=== PATIENT | male | born 1990 | race Caucasian/White ===

== ENCOUNTER 2019-12-08 11:25 | Emergency (ER) | payer OTHER, SELFPAY ==
[2019-12-08 11:43] VITALS: BP 143/82; PULSE 88; RESP 16; TEMP 37.3; O2SAT 98
--- NOTE | 2019-12-08 11:49 | ED.WOUNDLAC ---
HPI - Wound/Laceration General Chief Complaint: Wound/Laceration Stated Complaint: cut left 3rd finger Time Seen by Provider: 12/08/19 11:45 Source: patient and RN notes reviewed Mode of arrival: ambulatory Limitations: no limitations History of Present Illness HPI narrative: Patient presents today complaining of laceration to his left third finger. It was sustained at work on a piece of jagged metal approximately 45 minutes prior to exam. Denies numbness or tingling in the finger. Currently rates his pain 2/10. He is not up-to-date on his tetanus vaccine. Location: other (Left third finger) Related Data Home Medications Medication Instructions Recorded Confirmed No Home Medications 12/08/19 12/08/19 Allergies Allergy/AdvReac Type Severity Reaction Status Date / Time No Known Allergies Allergy Unverified 12/08/19 11:56 Review of Systems Review of Systems: Narrative: CONSTITUTIONAL: Denies body aches, fever, chills, or sweats. EYES: Denies visual changes, redness, or discharge. ENT: Denies rhinorrhea, congestion, sore throat, or otalgia. CARDIOVASCULAR: Denies chest pain, palpitations, or edema. RESPIRATORY: Denies cough or dyspnea. GASTROINTESTINAL: Denies abdominal pain, nausea, vomiting, or diarrhea. GENITOURINARY: Denies dysuria or hematuria. SKIN: Denies rash, itching. + Left third finger laceration MUSCULOSKELETAL: Denies back pain, joint pain, or myalgia. NEUROLOGIC: Denies headache, numbness, tingling, or weakness. PSYCH: Denies depression or anxiety. [facility] Past Medical History Medical History (Updated 12/08/19 @ 12:08 by Stephanie Rose, [facility], ) Acute rhinosinusitis Social History Social History Smoking status: Never smoker Alcohol intake: current Gender identity (if verbalized by the patient): Male Exam Narrative: Exam Narrative: GENERAL: Well-appearing, well-nourished, and in no acute distress. HEAD: Normocephalic, atraumatic. EYES: EOMI. No redness or drainage. Conjunctivae normal. ENT: Mucous membranes pink and moist. NECK: Normal AROM. CHEST: No respiratory distress. EXTREMITIES: Normal range of motion. No edema. SKIN: Warm, dry, no rash. Normal skin turgor. 1.5 cm partial-thickness flap laceration to the left third PIP, dorsal aspect. Distal sensation intact. Capillary refill normal. Full AROM of the finger against resistance. Minimal active bleeding. NEURO: No focal deficits. Alert and oriented x3. Gait steady. PSYCH: Normal affect. No signs of depression or anxiety. Course Vital Signs Vital signs: Vital Signs Temperature 99.1 F 12/08/19 11:43 Pulse Rate 88 12/08/19 11:43 Respiratory Rate 16 12/08/19 11:43 Blood Pressure 143/82 H 12/08/19 11:43 Pulse Oximetry 98 12/08/19 11:43 Temperature 99.1 F 12/08/19 11:43 Pulse Rate 88 12/08/19 11:43 Respiratory Rate 16 12/08/19 11:43 Blood Pressure 143/82 H 12/08/19 11:43 Pulse Oximetry 98 12/08/19 11:43 Reviewed. Pt has been instructed to follow up with his PCP regarding his elevated blood pressure today. Procedures Laceration Laceration 1: Date: 12/08/19 Time: 12:04 Site: lower extremity Size (cm): 1.5 Description: flap Depth: simple, single layer Local Anesthetic: lidocaine 1% Amount of anesthesia used (mL): 1 Pre-repair: wound explored and irrigated ====== Skin Level ====== Skin layer closed with: nylon Size (cm): 5-0 Number of sutures: 2 Technique: simple, interrupted ====== Subcutaneous Layer ====== ====== Muscle Layer ====== ====== Tendon Layer ====== Dressing: Splint and dressing applied by RN. MDM - Wound/Laceration Differential Diagnosis Differential diagnosis: Likely laceration Critical Care Time Critical Care Time Critical Care Time: No Discharge Plan Discharge Clinical Impression: Finger laceration Qualifiers: Encounter type: in
[2019-12-08] MEDS: TETANUS,DIPHTHERIA,AC PERTUSSIS ADULT 0.5 ML (ADACEL) IM (11:52)
== END 2019-12-08 12:09 | disposition home or self-care (01) ==
PROVIDERS: Emergency Provider Nurse Practitioner; PCP Family Medicine
DX: S61.213A Laceration without foreign body of left middle finger without damage to nail, initial encounter (principal); Z23 Encounter for immunization; W26.9XXA Contact with unspecified sharp object(s), initial encounter
CPT/HCPCS: 12001; 90471; 90715; 99212; G0463

== ENCOUNTER 2021-08-24 | Emergency (ER) | payer OTHER, SELFPAY ==
[2021-08-24 01:09] VITALS: BP 166/104; PULSE 87; RESP 16; TEMP 36.9; O2SAT 97
--- NOTE | 2021-08-24 02:05 | ED.EYEPROB ---
HPI - Eye Problem General Chief complaint: Eye Problems Stated complaint: eye pain, tearing Time Seen by Provider: 08/24/21 01:55 History of Present Illness HPI Narrative: 30-year-old presents the emergency room with complaints of a grainy feeling in his left eye upon awakening this evening around 11:00. Patient states he has a history of corneal abrasions. Related Data Allergies Allergy/AdvReac Type Severity Reaction Status Date / Time No Known Allergies Allergy Unverified 12/08/19 11:56 Review of Systems Review of Systems: CONSTITUTIONAL: Denies fever, chills, or sweats. EYES: Denies visual changes, redness, or discharge. ENT: Denies rhinorrhea, congestion, sore throat, or otalgia. CARDIOVASCULAR: Denies chest pain, palpitations, or edema. RESPIRATORY: Denies cough or dyspnea. GASTROINTESTINAL: Denies abdominal pain, nausea, vomiting, or diarrhea. GENITOURINARY: Denies dysuria or hematuria. SKIN: Denies rash or itching. MUSCULOSKELETAL: Denies back pain, joint pain, or myalgia. NEUROLOGIC: Denies headache, numbness, dizziness, or weakness. PSYCHIATRIC: Denies anxiety or depression. [facility] Past Medical History Medical History Acute rhinosinusitis Social History Social History Smoking status: Never smoker Alcohol intake: current Gender identity (if verbalized by the patient): Male Exam Narrative: GENERAL: Well-appearing, well-nourished, and in no acute distress. HEAD: Normocephalic, atraumatic. EYES: PERRLA and EOMI. crescent shaped corneal abrasion to the 6 o'clock position of the left eye ENT: Nares clear, no rhinorrhea or epistaxis. Mucous membranes moist. Oropharynx without tonsillar hypertrophy exudate or other lesions. Bilateral TMs pearly rivera nonbulging NECK: Supple. No adenopathy or masses. No carotid bruits or JVD CHEST: Clear to auscultation. No respiratory distress. No wheezes rales or rhonchi HEART: Regular rate and rhythm. No murmur heard. Normal peripheral pulses. ABDOMEN: Soft, nontender, nondistended, normal active bowel sounds. EXTREMITIES: Normal range of motion. No edema. SKIN: Warm, dry, no rash. NEURO: No focal deficits. Alert and oriented x3. PSYCH: Normal mood and affect. Course Course Emergency Course: Fluorescein stain to left eye demonstrated a small crescent-shaped corneal abrasion to the 6 o'clock position. Vital Signs Vital signs: Vital Signs Temperature 36.9 C 08/24/21 01:09 Pulse Rate 87 08/24/21 01:09 Respiratory Rate 16 08/24/21 01:09 Blood Pressure 166/104 H 08/24/21 01:09 Pulse Oximetry 97 08/24/21 01:09 Temperature 36.9 C 08/24/21 01:09 Pulse Rate 87 08/24/21 01:09 Respiratory Rate 16 08/24/21 01:09 Blood Pressure 166/104 H 08/24/21 01:09 Pulse Oximetry 97 08/24/21 01:09 MDM - Eye Problem Differential Diagnosis Differential diagnosis: Likely corneal abrasion Discharge Plan Discharge Clinical Impression: Corneal abrasion Qualifiers: Encounter type: initial encounter Laterality: left Qualified Code(s): S05.02XA - Injury of conjunctiva and corneal abrasion without foreign body, left eye, initial encounter Patient Disposition: Home, Self-Care Condition: Stable Instructions: Antibiotic Form Additional Instructions: Take eyedrops as directed. Follow-up with optometry or ophthalmology in 5 to 6 days as needed if symptoms do not improve or if vision worsens. Prescriptions: New polymyxin B sulf-trimethoprim 10,000 unit- 1 mg/mL drops 1 drp EACH EYE Q3H 7 Days RF: 0 No Action triamcinolone acetonide 0.1 % cream 1 applic TOPICAL DAILY Qty: 15 RF: 0 Follow-up/Referrals: Gene Dutton MD [Primary Care Provider] - Time of Disposition: 02:11
[2021-08-24 02:47] VITALS: BP 155/102; PULSE 81; RESP 18; O2SAT 99
== END 2021-08-24 02:49 | disposition home or self-care (01) ==
LOC: ANHED 02:21
PROVIDERS: Emergency Provider Nurse Practitioner Family; PCP Family Medicine
DX: S05.02XA Injury of conjunctiva and corneal abrasion without foreign body, left eye, initial encounter (principal); X58.XXXA Exposure to other specified factors, initial encounter
CPT/HCPCS: 99283; A9270

== ENCOUNTER 2022-10-08 08:29 | Emergency (ER) | payer OTHER, SELFPAY ==
[2022-10-08] VITALS (8 sets, daily range): BP systolic 111–171; BP diastolic 85–106; PULSE 80–96; RESP 15–20; TEMP 36.4; O2SAT 94–99
--- NOTE | 2022-10-08 08:50 | ECG_ITS ---
Measurements Intervals [place] Rate: 93 P: 57 WI: 146 QRS: 53 QRSD: 85 T: 30 QT: 351 QTc: 437 Interpretive Statements SINUS RHYTHM NO PREVIOUS ECG AVAILABLE FOR COMPARISON Electronically Signed On 10-08-2022 12:25:32 CDT by Machelle Salas M.D.
--- NOTE | 2022-10-08 09:10 | ED.ARRPALP ---
HPI - Arrhythmia/Palpitations General Chief Complaint: Arrhythmia/Palpitations Stated Complaint: heart palpitations Time Seen by Provider: 10/08/22 08:51 Source: patient Mode of arrival: ambulatory Limitations: no limitations History of Present Illness HPI narrative: This is a 31-year-old male with no pertinent PMH who presents to the ED for chief complaint of palpitations x1 month intermittently. States more frequent in the last 3 days. Called his PCP who said come to the ER. States they last only a couple seconds and then go away. States it feels like it skips a beat on occasion. States he cut caffeine out about a couple months ago. Patient denies any syncope, chest pain, shortness of breath. Related Data Home Medications Medication Instructions Recorded Confirmed No Home Medications 03/13/22 03/13/22 Allergies Allergy/AdvReac Type Severity Reaction Status Date / Time No Known Allergies Allergy Unverified 10/08/22 08:45 Review of Systems Review of Systems: CONSTITUTIONAL: Denies fever, chills, or sweats. EYES: Denies visual changes, redness, or discharge. ENT: Denies rhinorrhea, congestion, sore throat, or otalgia. CARDIOVASCULAR: Endorses palpitations. Denies chest pain, or edema. RESPIRATORY: Denies cough or dyspnea. GASTROINTESTINAL: Denies abdominal pain, nausea, vomiting, or diarrhea. GENITOURINARY: Denies dysuria or hematuria. SKIN: Denies rash or itching. MUSCULOSKELETAL: Denies back pain, joint pain, or myalgia. NEUROLOGIC: Denies headache, numbness, dizziness, or weakness. PSYCHIATRIC: Denies anxiety or depression. [facility] Past Medical History Medical History Acute rhinosinusitis Social History Social History (Updated 03/13/22 @ 13:25 by Mary Wild) Smoking status: Never smoker Alcohol intake: current Substance use: never Living arrangements: with family Occupation/Education: occupation Gender identity (if verbalized by the patient): Male Sexual Orientation (if Verbalized by the Patient): Straight or Heterosexual Spiritual care concerns: No Exam Narrative: GENERAL: Well-appearing, well-nourished, and in no acute distress. HEAD: Normocephalic, atraumatic. EYES: PERRLA and EOMI. ENT: Nares clear, no rhinorrhea or epistaxis. Mucous membranes moist. Oropharynx without tonsillar hypertrophy exudate or other lesions. NECK: Supple. No adenopathy or masses. CHEST: No respiratory distress. Clear to auscultation. No wheezes rales or rhonchi HEART: Regular rate and rhythm. No murmur heard. Normal peripheral pulses. ABDOMEN: Soft, nontender, nondistended, normal active bowel sounds. EXTREMITIES: Normal range of motion. No edema. SKIN: Warm, dry, no rash. NEURO: Alert and oriented x3. No focal deficits. PSYCH: Normal mood and affect. Course Vital Signs Vital signs: Vital Signs Temperature 97.6 F 10/08/22 08:41 Pulse Rate 94 10/08/22 08:41 Respiratory Rate 20 10/08/22 08:41 Blood Pressure 171/106 H 10/08/22 08:41 Pulse Oximetry 98 10/08/22 08:41 Oxygen Delivery Room Air 10/08/22 08:41 Temperature 97.6 F 10/08/22 08:41 Pulse Rate 88 10/08/22 10:08 Respiratory Rate 18 10/08/22 10:08 Blood Pressure 129/85 10/08/22 10:08 Pulse Oximetry 96 10/08/22 10:08 Oxygen Delivery Room Air 10/08/22 08:41 MDM - Arrhythmia/Palpitations MDM Narrative Medical decision making narrative: This is a 31-year-old male presents to the ED with chief complaint of palpitations x1 month. Initial vitals are stable. Slightly hypertensive but relates this to whitecoat anxiety. EKG is normal sinus rhythm with regular rate. Initial blood work including CBC, BMP, TSH all show no acute abnormalities. Due to his described sensations of fluttering and only feeling like it only lasts a couple of seconds, suspect something more like PVCs or anxiety. Encouraged him to follow-up with PCP to set up the H
[2022-10-08 09:16] LABS: Basophils Percent Auto 0.5 % (0.2-1.2); Eosinophils Absolute Auto 0.1 K/mm3 (0-0.3); Eosinophils Percent Auto 1.5 % (0-4.4); Hematocrit 43.7 % (42.0-52.0); Hemoglobin 15.3 g/dL (14.0-18.0); Immature Granulocyte Absolute 0.04 K/mm3 (0.00-0.031); Immature Granulocyte Percent A 0.5 % (0-0.5); Lymphocytes Absolute Auto 1.79 K/mm3 (0.9-3.2); Lymphocytes Percent Auto 22.5 % (18.3-44.2); Mean Corpuscular Hemoglobin 28.6 pg (26-34); Mean Corpuscular Volume 81.7 fl (80-100); Mean Platelet Volume 9.3 fl (7.4-10.4); Monocytes Absolute Auto 0.7 K/mm3 (0.1-0.6); Monocytes Percent Auto 8.2 % (2.6-8.5); Neutrophils Absolute Auto 5.3 K/mm3 (1.3-6.7); Neutrophils Percent Auto 66.8 % (45.5-73.1); Platelet Count Result 285 k/mm3 (150-375); Red Blood Count 5.35 M/mm3 (4.6-6.20); Red Cell Distribution Width 12.1 % (11.5-14.5)
[2022-10-08 09:25] LABS: Anion Gap 8 mmol/L (8-16); Blood Urea Nitrogen 19 mg/dL (9-20); Calcium 9.5 mg/dL (8.4-10.2); Carbon Dioxide 28 mmol/L (22-30); Chloride 103 mmol/L (98-107); Estimated CRCL calculation 145 ml/min; Estimated Glomerular Filt Rate > 60; Glucose 112 mg/dL (65-110); Potassium 3.6 mmol/L (3.4-5.0); Sodium 139 mmol/L (137-145)
== END 2022-10-08 10:38 | disposition home or self-care (01) ==
PROVIDERS: Emergency Provider Physician Assistant; PCP Family Medicine
DX: R00.2 Palpitations (principal)
CPT/HCPCS: 36415; 80048; 84443; 85025; 93005; 99283

== ENCOUNTER 2023-06-10 08:03 | Emergency (ER) | payer OTHER, SELFPAY ==
--- NOTE | ~2023-06-10 | XR_ITS ---
XR ankle LT min 3V, XR foot LT min 3V 06/10/2023 08:33 Indication: Status post fall. Left ankle and foot pain. Procedure: 4 views left ankle and 4 views left foot Comparison: No prior studies for comparison. Findings: There is a fifth metatarsal neck fracture which is nondisplaced and extra-articular. There is a degenerative calcaneal enthesophyte at the plantar surface. Ankle mortise intact. Lisfranc joint intact. Impression: 1: Nondisplaced extra-articular fracture distal aspect of the fifth metatarsal at the neck. Reviewed, dictated and finalized at location B. [employer]ACH[employer]PER[employer] Impression: 1: Nondisplaced extra-articular fracture distal aspect of the fifth metatarsal at the neck. Impression: 1: Nondisplaced extra-articular fracture distal aspect of the fifth metatarsal at the neck.
[2023-06-10 08:16] VITALS: BP 141/88; PULSE 80; RESP 18; TEMP 36.3; O2SAT 99
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
--- NOTE | 2023-06-10 09:02 | PC.NURSE ---
+PMS POST POST OP SHOE APPLICATION. PT AMBULATORY ON CRUTCHES WITHOUT DIFFICULTY. RAD DISC PROVIDED
== END 2023-06-10 09:00 | disposition home or self-care (01) ==
PROVIDERS: Emergency Provider Nurse Practitioner; PCP Family Medicine
DX: S92.355A Nondisplaced fracture of fifth metatarsal bone, left foot, initial encounter for closed fracture (principal); V86.06XA Driver of dirt bike or motor/cross bike injured in traffic accident, initial encounter
CPT/HCPCS: 73610; 73630; 99214; G0463

== ENCOUNTER 2023-09-06 16:00 | Emergency (ER) | payer OTHER, SELFPAY ==
[2023-09-06 16:12] VITALS: BP 153/96; PULSE 92; RESP 18; TEMP 36.6; O2SAT 100
--- NOTE | 2023-09-06 16:51 | ED.URI ---
HPI - URI/Sore Throat General Chief Complaint: Upper Respiratory Infection Stated Complaint: sore throat Time Seen by Provider: 09/06/23 16:51 Source: patient Mode of arrival: ambulatory Limitations: no limitations History of Present Illness HPI Narrative: 32-year-old male presents with complaint of intermittent sore throat, postnasal drainage for 2 weeks. Afebrile. Not taking any [id number] medications to treat his symptoms. Patient reports that every spring he takes Zyrtec for allergies. All systems reviewed and negative except as noted above. Related Data Allergies Allergy/AdvReac Type Severity Reaction Status Date / Time No Known Allergies Allergy Verified 09/06/23 16:19 Review of Systems Review of Systems: CONSTITUTIONAL: Denies fever, chills, or sweats. EYES: Denies visual changes, redness, or discharge. ENT: Denies rhinorrhea, congestion Reports sore throat, postnasal drainage. Denies otalgia. CARDIOVASCULAR: Denies chest pain, palpitations, or edema. RESPIRATORY: Denies cough or dyspnea. GASTROINTESTINAL: Denies abdominal pain, nausea, vomiting, or diarrhea. GENITOURINARY: Denies dysuria or hematuria. SKIN: Denies rash or itching. MUSCULOSKELETAL: Denies back pain, joint pain, or myalgia. NEUROLOGIC: Denies headache, numbness, or weakness. PSYCHIATRIC: Denies anxiety or depression. All other systems reviewed are negative, except as documented in HPI. [facility] Past Medical History Medical History (Updated 09/06/23 @ 16:59 by Rachel Vieira NP) Acute rhinosinusitis Nondisplaced fracture of fifth left metatarsal bone [place] neck. 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 There is no relevant family history pertinent to the presenting complaint. Exam Narrative: GENERAL: This is a well-nourished, well-developed patient, in no apparent distress. HEAD: normocephalic, atraumatic. EYES: PERRL. Sclera clear/white. Vision is grossly intact. EARS: External ears normal, auditory canals clear and without drainage, TMs normal without perforation. Hearing grossly intact. NOSE: External nose normal with no obvious nasal discharge, nares without redness, no rhinorrhea. THROAT: Mucous membranes moist, erythema with postnasal drainage. NECK: Neck supple, non-tender without lymphadenopathy, masses or thyromegaly. CARDIOVASCULAR: Regular rate and rhythm without murmurs, gallops, or rubs. RESPIRATORY: Clear to auscultation. Breath sounds equal bilaterally. No wheezes, rales, or rhonchi. SKIN: warm, Dry, intact with no suspicious lesions or rash, good texture and turgor. NEURO: awake, alert, and oriented to person, place and time. There were no obvious focal neurologic abnormalities. EXTREMITIES: No joint tenderness, effusion, or edema noted. Course Course Level of Care: Express Care Visit Vital Signs Vital signs: Vital Signs Temperature 36.6 C 09/06/23 16:12 Pulse Rate 92 09/06/23 16:12 Respiratory Rate 18 09/06/23 16:12 Blood Pressure 153/96 H 09/06/23 16:12 Pulse Oximetry 100 09/06/23 16:12 Oxygen Deli
== END 2023-09-06 17:03 | disposition home or self-care (01) ==
PROVIDERS: Emergency Provider Nurse Practitioner Family; PCP Family Medicine
DX: J01.90 Acute sinusitis, unspecified (principal)
CPT/HCPCS: 87081; 87880; 99213; G0463

== ENCOUNTER 2023-11-10 13:05 | Emergency (ER) | payer OTHER, SELFPAY ==
[2023-11-10 13:27] VITALS: BP 131/84; PULSE 79; RESP 16; TEMP 36.4; O2SAT 99
--- NOTE | 2023-11-10 13:31 | ED.URI ---
HPI - URI/Sore Throat General Chief Complaint: Upper Respiratory Infection Stated Complaint: Sore Throat Time Seen by Provider: 11/10/23 13:31 Source: patient Mode of arrival: ambulatory Limitations: no limitations History of Present Illness HPI Narrative: 33-year-old male presents with complaint of sore throat, nasal congestion, fatigue, body aches, headaches, intermittent cough for the past 3 days. Denies nausea vomiting diarrhea. Patient's daughter sick with strep throat. All systems reviewed and negative except as noted above. Related Data Allergies Allergy/AdvReac Type Severity Reaction Status Date / Time No Known Allergies Allergy Verified 11/10/23 13:07 Review of Systems Review of Systems: CONSTITUTIONAL: Denies fever, chills, or sweats. Reports fatigue. EYES: Denies visual changes, redness, or discharge. ENT: Reports rhinorrhea, congestion, sore throat. Denies otalgia. CARDIOVASCULAR: Denies chest pain, palpitations, or edema. RESPIRATORY: reports cough. Denies dyspnea. GASTROINTESTINAL: Denies abdominal pain, nausea, vomiting, or diarrhea. GENITOURINARY: Denies dysuria or hematuria. SKIN: Denies rash or itching. MUSCULOSKELETAL: Denies back pain, joint pain, or myalgia. NEUROLOGIC: Denies headache, numbness, or weakness. PSYCHIATRIC: Denies anxiety or depression. All other systems reviewed are negative, except as documented in HPI. [facility] Past Medical History Medical History Acute rhinosinusitis Nondisplaced fracture of fifth left metatarsal bone [place] neck. June 2023 Social History Social History (Updated 10/02/23 @ 15:56 by Shannon Austin) Social History: Smoking status: Never smoker Second hand tobacco smoke exposure: No Alcohol intake: current Substance use: never Substance use type: does not use Do You Feel Safe in your Home?: Yes Lack of Transportation: No Lack of Food: Never True Current Housing: I Have Housing Concerned About Future Housing: No Difficulty Paying Gas/Electric Bills: No Difficulty Paying for Meds: No Currently Unemployed: No Education: Trade/Vocational Certificate Difficulty w/ Childcare or Family Care: No Living arrangements: with family Occupation/Education: occupation 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 There is no relevant family history pertinent to the presenting complaint. Exam Narrative: GENERAL: This is a well-nourished, well-developed patient, Patient ill-appearing but no acute distress. HEAD: normocephalic, atraumatic. EYES: PERRL. Sclera clear/white. Vision is grossly intact. EARS: External ears normal, auditory canals clear and without drainage, TMs normal without perforation. Hearing grossly intact. NOSE: External nose normal with no obvious nasal discharge, nares without redness, no rhinorrhea. THROAT: Mucous membranes moist, erythema to posterior pharynx. NECK: Neck supple, non-tender without lymphadenopathy, masses or thyromegaly. CARDIOVASCULAR: Regular rate and rhythm without murmurs, gallops, or rubs. RESPIRATORY: Clear to auscultation. Breath sounds equal bilaterally. No wheezes, rales, or rhonchi. SKIN: warm, Dry, intact with no suspicious lesions or rash, good texture and turgor. NEURO: awake, alert, and oriented to person, place and time. There were no obvious focal neurologic abnormalities. EXTREMITIES: No joint tenderness, effusion, or edema noted. Course Course Level of Care: Express Care Visit Vital Signs Vital signs: Vital Signs Temperature 36.4 C L 11/10/23 13:27 Pulse Rate 79 11/10/23 13:27 Respiratory Rate 16 11/10/23 13:27
== END 2023-11-10 13:45 | disposition home or self-care (01) ==
PROVIDERS: Emergency Provider Nurse Practitioner Family; PCP Family Medicine
DX: J02.0 Streptococcal pharyngitis (principal)
CPT/HCPCS: 87880; 99213; G0463

== ENCOUNTER 2024-11-14 08:36 | Emergency (ER) | payer OTHER, SELFPAY ==
[2024-11-14 08:48] VITALS: BP 140/96; PULSE 82; RESP 16; TEMP 36.7; O2SAT 99
--- NOTE | 2024-11-14 08:53 | ED.EAR ---
HPI - Ear Problem General Chief complaint: Ear Stated complaint: Right Ear Irritation Time Seen by Provider: 11/14/24 08:55 Source: patient, RN notes reviewed and old records reviewed Mode of arrival: ambulatory Limitations: no limitations History of Present Illness HPI Narrative: 34-year-old male presents to the [facility] with complaints of 3 day history of right ear pain, pressure, swelling. Has taken Zyrtec and Tylenol. Related Data Allergies Allergy/AdvReac Type Severity Reaction Status Date / Time No Known Allergies Allergy Verified 11/14/24 08:51 Review of Systems Review of Systems: All systems reviewed & are unremarkable except as noted in HPI and below Constitutional: Constitutional: Reports no additional constitutional complaints ENT: Reports as per HPI and Reports otalgia Cardiovascular: Cardiovascular: Reports no additional cardiovascular complaints, Denies chest pain and Denies dyspnea Respiratory: Respiratory: Reports no additional respiratory complaints, Denies chest congestion, Denies cough and Denies dyspnea Musculoskeletal: Musculoskeletal: Reports no additional musculoskeletal complaints Integumentary/Breasts: Skin/Breast: Reports system reviewed and no additional complaints, except as docu PMFSH Past Medical History Medical History Nondisplaced fracture of fifth left metatarsal bone MT neck. June 2023 Surgical History Surgical History History of arthroscopy of left shoulder 05/25/24 Dr. Roman Correia Social History Social History Social History: Smoking status: Never smoker Second hand tobacco smoke exposure: No Alcohol intake: current Substance use: never Substance use type: does not use Do You Feel Safe in your Home?: Yes Lack of Transportation: No Lack of Food: Never True Current Housing: I Have Housing Concerned About Future Housing: No Difficulty Paying Gas/Electric Bills: No Difficulty Paying for Meds: No Currently Unemployed: No Education: Trade/Vocational Certificate Difficulty w/ Childcare or Family Care: No Living arrangements: with family Occupation/Education: occupation 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 There is no relevant family history pertinent to the patient complaint. Exam Const: General: cooperative, healthy appearing, comfortable, no acute distress, well developed, alert and well nourished Nutritional Appearance: well nourished Orientation/consciousness: patient oriented x3 Limitations: no limitations HENMT: Head: normal to inspection Ears: hearing grossly normal bilaterally, TM normal on the left, mastoids normal, no periauricular adenopathy and Abnormal EAC present erythema on the right, edema on the right and EAC tenderness on the right Mouth: Yes Normal oral and palatal mucosa present, Yes lip normal, Yes tongue normal and Yes moist mucous membranes Throat: posterior oropharynx normal, uvula midline and no uvular edema Eyes: General: appearance normal, both eyes and all related structures Alignment and Position: alignment normal Neck: Neck: normal visual inspection, full ROM, no lymphadenopathy and no meningeal signs Chest: Chest palpation & inspection: normal inspection of the chest Resp: Effort & Inspection: normal respiratory effort and able to speak in complete sentences Auscultation: clear to auscultation bilaterally, no crackles, no rales, no rhonchi and no wheezes Cardio: Rate: regular rate Skin: General skin exam: normal color and no rashes or lesions noted Neuro: General: patient oriented x3, gait normal, moves all extremities and no meningeal signs Cognition (Neuro): normal cognition Speech: normal speech Gait exam (Neuro): Normal gait present Extrem: General: normal to inspection, full ROM, capillary refill normal and normal gait Psych: Appearance: grossly normal and well kempt Mental Status: mental status grossly normal Speech and movement: Normal speech and movement present and Clear speech present Affect: normal affect Attitude: cooperative Course Course Emergency Course: Significant swelling noted to the right ear canal, Wick placed, instructed patient to start applying the antibiotic drops as soon as he gets them. Level of Care: Express Care Visit Vital Signs Vital signs: Vital Signs Temperature 98.1 F 11/14/24 08:48 Pulse Rate 82 11/14/24 08:48 Respiratory Rate 16 11/14/24 08:48 Blood Pressure 140/96 H 11/14/24 08:48 Pulse Oximetry 99 11/14/24 08:48 Oxygen Delivery Room Air 11/14/24 08:48 Temperature 98.1 F 11/14/24 08:48 Pulse Rate 82 11/14/24 08:48 Respiratory Rate 16 11/14/24 08:48 Blood Pressure 140/96 H 11/14/24 08:48 Pulse Oximetry 99 11/14/24 08:48 Oxygen Delivery Room Air 11/14/24 08:48 Reviewed Medical Decision Making MDM Narrative Medical decision making narrative: Patient sitting in exam room. Patient is nontoxic, vitals are stable. Patient presents with right ear discomfort, significant erythema and swelling noted to the ear canal. Wick placed. Patient appropriate for outpatient treatment with close follow-up Discharge instructions reviewed with patient, as well as provided in writing per nursing staff. The instructions also include specific and strict return/GO TO THE ER as well as f/u information. All questions have been answered, and the patient deny any further questions with discharge and discharge plan. Some parts of this dictation were generated by voice recognition software and may contain typographical and/or grammatical inaccuracies. Differential Diagnosis Differential Diagnosis: Otitis media, serous otitis, otitis externa Medical Records Medical records reviewed: Yes I reviewed the external patient's medical records. Vital Signs Vital Signs: Vital Signs Temperature 98.1 F 11/14/24 08:48 Pulse Rate 82 11/14/24 08:48 Respiratory Rate 16 11/14/24 08:48 Blood Pressure 140/96 H 11/14/24 08:48 Pulse Oximetry 99 11/14/24 08:48 Oxygen Delivery Room Air 11/14/24 08:48 Temperature 98.1 F 11/14/24 08:48 Pulse Rate 82 11/14/24 08:48 Respiratory Rate 16 11/14/24 08:48 Blood Pressure 140/96 H 11/14/24 08:48 Pulse Oximetry 99 11/14/24 08:48 Oxygen Delivery Room Air 11/14/24 08:48 Reviewed Lab Data Lab results reviewed: Yes I reviewed the patient's lab results. Labs: Reviewed Critical Care Time Critical Care Time Critical Care Time: No Discharge Plan Discharge Clinical Impression: Acute otitis externa of right ear Qualifiers: Otitis externa type: unspecified type Qualified Code(s): H60.501 - Unspecified acute noninfective otitis externa, right ear Patient Disposition: Home Condition: Stable Instructions: Antibiotic Form, Swimmer's Ear (ED) Additional Instructions: Follow-up with ENT Follow-up with primary care provider Use ear drops as prescribed Take oral medications as prescribed Continue to take allergy medication Patient Language: Uzbek Prescriptions: New ciprofloxacin-dexamethasone 0.3-0.1 % drops,suspension 5 drp EACH EAR Q12H 7 Days Qty: 7.5 0RF amoxicillin-pot clavulanate 875-125 mg tablet 1 tablet PO Q12H Qty: 20 0RF Follow-up/Referrals: Gene Dutton MD [Primary Care Provider] - 2 Weeks Aditya Darden MD [Physician] - 1 Week (Reoccurring right otitis externa) Stand Alone Forms: Work/School Release IP Time of Disposition: 09:17
== END 2024-11-14 09:20 | disposition home or self-care (01) ==
PROVIDERS: Emergency Provider Nurse Practitioner; PCP Family Medicine
DX: H60.501 Unspecified acute noninfective otitis externa, right ear (principal)
CPT/HCPCS: 99213; G0463

== ENCOUNTER 2025-01-28 17:09 | Emergency (ER) | payer OTHER, SELFPAY ==
--- NOTE | 2025-01-28 17:09 | ED_ITS ---
HPI - Skin/Abscess/Foreign Bdy General Chief complaint: Skin/Abscess/Foreign Body Stated complaint: poison ella Time Seen by Provider: 01/28/25 17:09 Source: patient Mode of arrival: ambulatory Limitations: no limitations History of Present Illness HPI narrative: Clifton is a 34-year-old male patient presenting to the clinic today with complaints of possible poison ella to his ankles and lower legs. He reports symptoms have been going on for about 1 week. Rash seems to be spreading, was hiking last week. Denies any fevers, chills, body aches. Related Data Allergies Allergy/AdvReac Type Severity Reaction Status Date / Time No Known Allergies Allergy Verified 01/28/25 17:19 Review of Systems Review of Systems: Pertinent positives per HPI. Patient denies any fever, chills, headache, visual changes, dizziness, cough, runny nose, sore throat, shortness of breath, chest pain, palpitations, nausea, vomiting, diarrhea, constipation, abdominal pain, or any urinary issues. [facility] Past Medical History Medical History Nondisplaced fracture of fifth left metatarsal bone MT neck. June 2023 Surgical History Surgical History History of arthroscopy of left shoulder 05/25/24 Dr. Roman Correia Social History Social History Social History: Smoking status: Never smoker Second hand tobacco smoke exposure: No Alcohol intake: current Substance use: never Substance use type: does not use Do You Feel Safe in your Home?: Yes Lack of Transportation: No Lack of Food: Never True Current Housing: I Have Housing Concerned About Future Housing: No Difficulty Paying Gas/Electric Bills: No Difficulty Paying for Meds: No Currently Unemployed: No Education: Trade/Vocational Certificate Difficulty w/ Childcare or Family Care: No Living arrangements: with family Occupation/Education: occupation 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 There is no relevant family history pertinent to the patient complaint. Exam Narrative: General: Well-developed, well nourished, in no apparent distress Head: Normocephalic, atraumatic. Cardio: Regular rate and rhythm, s1 and s2 normal, no murmur appreciated. Resp: Clear to auscultation bilaterally, no rhonchi, rales, wheezing or rubs. Integumentary: [place], warm, and dry, red, raised, blistered, itchy rash with clear drainage to bilateral ankles and lower extremities consistent with poison ella dermatitis Course Course Emergency Course: Portions of this record may have been created with voice recognition software. Level of Care: Express Care Visit Vital Signs Vital signs: Vital signs reviewed MDM - Skin/Abscess/Foreign Bdy MDM Narrative Medical decision making narrative: At the time of visit patient is resting comfortably on the exam table. Patient appears to be nontoxic. Patient has been recently hiking in the [place] last week and got into poison ella. Has red, raised, itchy blistered rash with some clear drainage. Plan: I suspect patient has poison ella dermatitis. Prescription for prednisone and triamcinolone cream was sent to the pharmacy. Supportive measures were discussed with the patient and they voiced understanding discharge instructions and agrees to treatment plan. Return precautions reviewed Differential Diagnosis Differential diagnosis: Likely abscess of skin or subcutaneous tissue, viral ex anthem, dermatophytosis, urticaria, herpes zoster, allergic reaction to drug, cellulitis, eczema, insect bites, impetigo and contact dermatitis Discharge Plan Discharge Clinical Impression: Poison ella dermatitis Patient Disposition: Home Condition: Stable Instructions: Antibiotic Form Additional Instructions: Apply triamcinolone cream as directed Take prednisone as directed Avoid hot showers May apply calamine lotion to rash Avoid scratching and this causes rash to spread May take Benadryl 25-50mg every 6 hours as needed for itching. Follow up with your PCP in 3-5 days if symptoms persist or sooner if they worsen Go to the Emergency Room if symptoms worsen- fever, rash spreading with treatm ent, shortness of breath, tongue swelling, drooling, or chest pain Patient Language: Lithuanian Prescriptions: New triamcinolone acetonide 0.1 % cream 1 applic topical BID 7 Days Qty: 30 0RF prednisone 10 mg tablet 10 mg PO DAILY Qty: 30 0RF Rx Instructions: 60mg po daily on day 1, 40mg po daily on days 2-4, 30mg po daily on days 5-6, 20mg po daily on days 7-8, 10mg po daily on days 9-10 No Action ciprofloxacin-dexamethasone 0.3-0.1 % drops,suspension 5 drp EACH EAR Q12H 7 Days Qty: 7.5 0RF amoxicillin-pot clavulanate 875-125 mg tablet 1 tablet PO Q12H Qty: 20 0RF Follow-up/Referrals: Gene Dutton MD [Primary Care Provider] - Time of Disposition: 17:21 Quality NIHSS Nursing Documentation ED NIHSS nursing documentation: reviewed/agree
--- OUTSIDE RECORDS SUMMARY | 2025-01-28 17:11 | XMS_ITS | Clinical Summary ---
Author Organization [facility] [employer] Address [address] 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 This disclosure is being madepursuant to the Care Everywhere program and may not contain all information available regarding this patient. 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 Gender Identity Not on file Sexual Orientation Not on file Plan of Treatment Health Maintenance Due Date Last Done Comments HIV SCREENING 10/24/2003 HEPATITIS C SCREENING 10/19/2006 HEPATITIS B VACCINE (1 of 3 - 19+ 3-dose series) 10/24/2007 HPV VACCINE (1 - 3-dose SCDM series) 10/24/2015 COVID-19 VACCINE (2023-2 5 season) 2024 DEPRESSION SCREENING 07/08/2024 INFLUENZA VACCINE (#1) 2025 DTAP/TDAP/TD VACCINES (2 - T d or Tdap) 08/30/2028 08/30/2018 ZOSTER VACCINE (1 of 2) 2038 HIB VACCINE Aged Out No longer eligi ble based on patient's age to complete this topic MENINGOCOCCAL (Group B) VACC INE SHARED DECISION-MAKING Aged Out No longer eligibl e based on patient's age to complete this topic MENINGOCOCCAL GROUPS A/C/Y/W VACCINE Aged Out No longer eligible b ased on patient's age to complete this topic PNEUMOCOCCAL VACCINE Aged Out No long er eligible based on patient's age to complete this topic Insurance [employer]
--- OUTSIDE RECORDS SUMMARY | 2025-01-28 17:11 | XMS_ITS | Clinical Summary ---
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 Active acetaminophen (TYLENOL) 500 MG tablet Take 1 tablet (500 mg total) by mouth every 6 (six) hours as needed for Pain. 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, initial encounter 03/12/2024 Encounters Date Type Department Care Team Description 11/26/2024 8:00 AM CDT Office Visit [facility] - [place] [address] Roman Correia MD Follow Up (Lt shoulder scope 05/25) 11/26/2024 Scan [facility] Scanned, Doc [facility] 11/26/2024 Travel from Last 3 Months Family History Medical History Relation Comments Asthma Father No Known Problems Mother Relation Status Comments Father Alive Mother Alive Social History Tobacco Use Types Packs/Day Years Used Date Smoking Tobacco: Never Smokeless Tobacco: Never Tobacco Cessation:Counseling Given: No Alcohol Use Standard Drinks/Week Comments Yes 0 (1 standard drink = 0.6 oz pure alcohol) couple on weekend 5-10 per week PHQ-2 Answer Date Recorded Patient Health Questionnaire-2 Score 0 07/23/2024 Sex and Gender Information Value Date Recorded Sex Assigned at Male 08/20/2024 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 Legal Sex Male 8:35 PM CDT Gender Identity Not on file Sexual Orientation Not on file Last Filed Vital Signs Vital Sign Reading Time Taken Comments Blood Pressure 142/91 11/26/2024 8:14 AM CDT Pulse 69 11/26/2024 8:14 AM CDT Temperature 36.8 C (98.3 F) 10/15/2024 8:19 AM CDT Respiratory Rate 16 11/26/2024 7:51 AM CDT Oxygen Saturation 100% 11/26/2024 7:51 AM CDT Inhaled Oxygen Concentration - - Weight 113.7 kg (250 lb 9.6 oz) 11/26/2024 7:51 AM CDT Height 180.3 cm (5' 11) 11/26/2024 7:51 AM CDT Body Mass Index 34.95 11/26/2024 7:51 AM CDT Plan of Treatment Health Maintenance Due Date Last Done Comments Annual Physical 10/24/1991 Hepatitis C 2006 HPV Vaccines (1 - 3-dose SCDM series) 10/24/2015 COVID-19 Vaccine ( season) 2024 DTaP, Tdap and Td Vaccines (7 - Td or Tdap) 08/30/2028 08/30/2018, 12/07/2002, 03/08/1993, Additional history exists Hepatitis B Vaccines Completed 03/04/2000, 10/05/1999, 06/13/1999 PHQ-2 (Physician Alutiiq) Completed 07/23/2024 Meningococcal B Vaccine Aged Out No l onger eligible based on patient's age to complete this topic Meningococcal Vaccine Aged Out No aashish eliane eligible based on patient's age to complete this topic Pneumococcal Vaccine: Pediatrics (0 to 5 Years) and At-Risk Patients (6 to 49 Years) Aged Out No longer eligible based on patient's age to complete this topic RSV Immunizations Under 20 Months Aged Out No longer eligible based on patient's age to complete this topic Medical Devices Implanted Type Area Chair And Couch Maker Device Identifier Shelf Expiration Date Model / Serial / Lot [place] [employer] Pushlock Biocomposite 2.9 X 12.5mm - [id number] Implanted:Qty: 3 on 05/25/2024 by Roman Correia MD at [facility] [place] Left: Shoulder [employer] [id number] 07/07/2025 [id number] / / [id number] Device Fixation [employer] Biocomposite Distal Biceps Repair - [id number] Implanted:Qty: 1 on 05/25/2024 by Roman Correia MD at [facility] Screw Left: Shoulder [employer] [id number] 04/06/2026 [id number] / / [id number] Insurance [employer] Care Teams Printed Circuit Designer Relationship Specialty Start Date End Date Gene Dutton MD [address] [place] [address] PCP - General FAMILY PRACTICE 12/27/23
[2025-01-28 17:17] VITALS: BP 154/100; PULSE 82; RESP 16; TEMP 36.7; O2SAT 97
== END 2025-01-28 17:24 | disposition home or self-care (01) ==
PROVIDERS: Emergency Provider Nurse Practitioner Family; PCP Family Medicine
DX: L23.7 Allergic contact dermatitis due to plants, except food (principal)
CPT/HCPCS: 99213; G0463